=== PATIENT | male | born 1970 | race Hispanic/Latino ===

== ENCOUNTER 2021-11-19 21:40 | Emergency (ER) | payer OTHER, SELFPAY ==
--- OUTSIDE RECORDS SUMMARY | 2021-11-19 21:42 | XMS REPORT | Continuity of Care Document ---
:1970 Author Organization [facility] t Address [address] [place] [address] Care Team Providers Name Role Phone Unavailable Unavailable Unavailable Problems Condition Condition Condition Status Onset Resolution Last Treating Co mments Source Name Details Category Date Date Treatment Clinician Date Need for Need for Diagnosis Active Com mon pneumococc pneumococc Sp leobardo al al - [facility] vaccinatio vaccinatio [facility] Erectile Erectile Diagnosis Active Com mon dysfunctio dysfunctio Sp leobardo n, n, - [facility] unspecifie unspecifie [facility] d erectile d erectile Beti kes dysfunctio dysfunctio Me dical n type n type Center Encounter Encounter Diagnosis Active C ommon for for Spirit preventati preventati - [facility] ve adult ve adult [facility] care exam care exam [facility] with with Center abnormal abnormal findings findings Tobacco Tobacco Diagnosis Active Commo n use use Spirit disorder disorder - [facility] Decreased Decreased Diagnosis Active C ommon libido libido [facility] Elevated Elevated Diagnosis Active Com mon BP without BP without Sp leobardo diagnosis diagnosis - [facility] I of of hypertensi hypertensi [facility] Allergies, Adverse Reactions, Alerts This patient has no known allergies or adverse reactions. Medications This patient has no known medications. Immunizations Ordered Immunization Filled Immunization Date Status Commen ts Source Name Name Pneumovax Pneumovax 2017-06-15 Completed [facility] 00:00:00 [facility] Procedures This patient has no known procedures. Encounters Start End Encounter Admission Attending Care Care Encounter Source Date/Time Date/Time Type Type Clinicians Facility Department ID 2017-06-15 2017-06-15 [id number] Common 13:15:00 13:15:00 [facility] Results This patient has no known results.
--- NOTE | 2021-11-19 22:37 | ER ---
Nurse's Notes [facility] Name: Bret Snow Age: 50 yrs Sex: Male : 1970 Arrival Date: 11/19/2021 Time: 21:43 Bed 12 Private MD: Diagnosis: Impulsiveness-UPSET, RESOLVED Presentation: 11/19 21:54 Chief complaint: Patient states: I got in an argument with my and I just got kd3 really frustrated and i told her that if she didn't let me come home that i would hurt myself. I regretted it the moment I said it. My son called the box office attendant and they escorted me here. I have absolutely no intentions of hurting myself or others. Coronavirus screen: Vaccine status: Patient reports receiving the 2nd dose of the covid vaccine. Ebola Screen: No symptoms or risks identified at this time. Initial Sepsis Screen: Does the patient meet any 2 criteria? No. Patient's initial sepsis screen is negative. Does the patient have a suspected source of infection? No. Patient's initial sepsis screen is negative. Risk Assessment: Do you want to hurt yourself or someone else? Patient reports no desire to harm self or others. Onset of symptoms was November 19, 2021. 21:54 Method Of Arrival: Ambulatory kd3 21:54 Acuity: BUSTER 5 kd3 Triage Assessment: 21:57 General: Appears in no apparent distress. Behavior is calm, cooperative. Pain: Denies kd3 pain. Historical: - Allergies: 21:57 No Known Allergies; kd3 - Home Meds: 21:57 blood pressure pills [Active]; kd3 - PMHx: 21:57 Diabetes mellitus; Hypertensive disorder; kd3 - Immunization history:: Adult Immunizations up to date. - Social history:: Smoking status: unknown. - Family history:: not pertinent. Screenin:58 Abuse screen: Denies threats or abuse. Denies injuries from another. Nutritional kd3 screening: No deficits noted. Tuberculosis screening: No symptoms or risk factors identified. Fall Risk None identified. Assessment: 22:30 General: Appears in no apparent distress. Behavior is calm, cooperative. Neuro: Level hb of Consciousness is awake, alert, obeys commands, Oriented to person, place, time, situation. Cardiovascular: Patient's skin is warm and dry. Respiratory: Respiratory effort is even, unlabored, Respiratory pattern is regular, symmetrical. GI: No signs and/or symptoms were reported involving the gastrointestinal system. : No signs and/or symptoms were reported regarding the genitourinary system. EENT: No signs and/or symptoms were reported regarding the EENT system. Derm: Skin is pink, warm \T\ dry. Musculoskeletal: No signs and/or symptoms reported regarding the musculoskeletal system. 23:30 Pain: Denies pain. hb Vital Signs: 21:54 Weight 83.91 kg; Height 5 ft. 6 in. (167.64 cm); kd3 21:59 BP 155 / 99; Pulse 88; Resp 19; Temp 98.5(O); Pulse Ox 98% on R/A; kd3 21:54 Body Mass Index 29.86 (83.91 kg, 167.64 cm) kd3 Henry Coma Score: 22:32 Eye Response: spontaneous(4). Verbal Response: oriented(5). Motor Response: obeys david commands(6). Total: 15. Trauma Score (Adult): 22:32 Eye Response: spontaneous(1); Verbal Response: oriented(1); Motor Response: obeys david commands(2); Systolic BP: > 89 mm Hg(4); Respiratory Rate: 10 to 29 per min(4); Henry Score: 15; Trauma Score: 12 ED Course: 21:43 Patient arrived in ED. bp1 21:57 Triage completed. kd3 21:57 Arm band placed on right wrist. kd3 21:58 Patient has correct armband on for positive identification. kd3 21:58 No provider procedures requiring assistance completed. kd3 22:03 Brea Mcfarland, TRISHA is Primary Nurse. hb 22:05 Vaibhav Avitia MD is Attending Physician. david 22:35 Mason Rodríguez MD is Referral Physician. david 22:45 Patient did not have IV access during this emergency room visit. hb Administered Medications: No medications were administered Medication: 22:30 VIS not applicable for this client. hb Outcome: 22:36 Discharge ordered by . david 22:45 Discharged to home ambulatory. hb 22:45 Condition: stable 22:45 Discharge instructions given to patient, Instructed on discharge instructions, follow up and referral plans. Demonstrated understanding of instructions, follow-up care. 22:49 Patient left the ED. hb Signatures: Vaibhav Avitia MD MD cha Baxter, Heather, RN RN Samantha Rothman Kyli RN RN kd3
--- NOTE | 2021-11-19 22:38 | EDPHYS ---
Physician Documentation [facility] Name: Bret Snow Age: 50 yrs Sex: Male : 1970 Arrival Date: 11/19/2021 Time: 21:43 Bed 12 Private MD: ED Physician Vaibhav Avitia HPI: 11/19 22:34 This 50 yrs old Male presents to ER via Ambulatory with complaints of Mental david Evaluation. 22:30 GOT UPSET, SAID SOME THINGS HE DIDN'T MEAN , WAS ARGUING WITH HIS . Onset: The david symptoms/episode began/occurred just prior to arrival. Severity of symptoms: At their worst the symptoms were mild moderate in the emergency department the symptoms have improved markedly. 22:34 The patient has not experienced similar symptoms in the past. david Historical: - Allergies: 21:57 No Known Allergies; kd3 - Home Meds: 21:57 blood pressure pills [Active]; kd3 - PMHx: 21:57 Diabetes mellitus; Hypertensive disorder; kd3 - Immunization history:: Adult Immunizations up to date. - Social history:: Smoking status: unknown. - Family history:: not pertinent. ROS: 22:32 Constitutional: Negative for fever, chills, and weight loss, Eyes: Negative for injury, david pain, redness, and discharge, ENT: Negative for injury, pain, and discharge, Neck: Negative for injury, pain, and swelling, Cardiovascular: Negative for chest pain, palpitations, and edema, Respiratory: Negative for shortness of breath, cough, wheezing, and pleuritic chest pain, Abdomen/GI: Negative for abdominal pain, nausea, vomiting, diarrhea, and constipation, Back: Negative for injury and pain, : Negative for injury, bleeding, discharge, and swelling, MS/Extremity: Negative for injury and deformity, Skin: Negative for injury, rash, and discoloration, Neuro: Negative for headache, weakness, numbness, tingling, and seizure, Allergy/Immunology: Negative for hives, rash, and allergies, Endocrine: Negative for neck swelling, polydipsia, polyuria, polyphagia, and marked weight changes, Hematologic/Lymphatic: Negative for swollen nodes, abnormal bleeding, and unusual bruising. 22:32 Psych: Positive for POOR IMPULSE CONTROL, GOT UPSET. Exam: 22:32 Constitutional: This is a well developed, well nourished patient who is awake, alert, david and in no acute distress. Head/Face: Normocephalic, atraumatic. Eyes: Pupils equal round and reactive to light, extra-ocular motions intact. Lids and lashes normal. Conjunctiva and sclera are non-icteric and not injected. Cornea within normal limits. Periorbital areas with no swelling, redness, or edema. ENT: Nares patent. No nasal discharge, no septal abnormalities noted. Tympanic membranes are normal and external auditory canals are clear. Oropharynx with no redness, swelling, or masses, exudates, or evidence of obstruction, uvula midline. Mucous membranes moist. Neck: Trachea midline, no thyromegaly or masses palpated, and no cervical lymphadenopathy. Supple, full range of motion without nuchal rigidity, or vertebral point tenderness. No Meningismus. Chest/axilla: Normal chest wall appearance and motion. Nontender with no deformity. No lesions are appreciated. Cardiovascular: Regular rate and rhythm with a normal S1 and S2. No gallops, murmurs, or rubs. Normal PMI, no JVD. No pulse deficits. Respiratory: Lungs have equal breath sounds bilaterally, clear to auscultation and percussion. No rales, rhonchi or wheezes noted. No increased work of breathing, no retractions or nasal flaring. Abdomen/GI: Soft, non-tender, with normal bowel sounds. No distension or tympany. No guarding or rebound. No evidence of tenderness throughout. Back: No spinal tenderness. No costovertebral tenderness. Full range of motion. Male : Normal genitalia with no discharge or lesions. Skin: Warm, dry with normal turgor. Normal color with no rashes, no lesions, and no evidence of cellulitis. MS/ Extremity: Pulses equal, no cyanosis. Neurovascular intact. Full, normal range of motion. Neuro: Awake and alert, GCS 15, oriented to person, place, time, and situation. Cranial nerves II-XII grossly intact. Motor strength 5/5 in all extremities. Sensory grossly intact. Cerebellar exam normal. Normal gait. Psych: Awake, alert, with orientation to person, place and time. Behavior, mood, and affect are within normal limits. 22:32 Psych: Behavior/mood is pleasant, cooperative, Affect is calm, Oriented to person, place, time, Patient has no thoughts/intents to harm self or others. Judgement / Insight is normal. Memory is normal. Delusions/hallucinations are not present. Vital Signs: 21:54 Weight 83.91 kg; Height 5 ft. 6 in. (167.64 cm); kd3 21:59 BP 155 / 99; Pulse 88; Resp 19; Temp 98.5(O); Pulse Ox 98% on R/A; kd3 21:54 Body Mass Index 29.86 (83.91 kg, 167.64 cm) kd3 [place] Coma Score: 22:32 Eye Response: spontaneous(4). Verbal Response: oriented(5). Motor Response: obeys david commands(6). Total: 15. Trauma Score (Adult): 22:32 Eye Response: spontaneous(1); Verbal Response: oriented(1); Motor Response: obeys david commands(2); Systolic BP: > 89 mm Hg(4); Respiratory Rate: 10 to 29 per min(4); Jana Score: 15; Trauma Score: 12 MDM: 22:05 Patient medically screened. david 22:34 Data reviewed: vital signs, nurses notes, EMS record. Data interpreted: Cardiac david monitor: rate is 88 beats/min, rhythm is regular, Pulse oximetry: on room air is 98 %. Counseling: I had a detailed discussion with the patient and/or guardian regarding: the historical points, exam findings, and any diagnostic results supporting the discharge/admit diagnosis, the need for outpatient follow up, for definitive care, a family practitioner, a psychiatrist. Administered Medications: No medications were administered Disposition Summary: 11/19/21 22:36 Discharge Ordered Location: Home david Problem: new david Symptoms: have improved david Condition: Stable david Diagnosis - Impulsiveness - UPSET, RESOLVED david Followup: david - With: Private Physician - When: 2 - 3 days - Reason: Recheck today's complaints, Continuance of care, Re-evaluation by your physician Followup: david - With: Mason Rodríguez MD - When: 2 - 3 days - Reason: Recheck today's complaints, Re-evaluation by your physician Discharge Instructions: - Discharge Summary Sheet david - Impulse Control Disorders david Forms: - Medication Reconciliation Form david - Thank You Letter david - Antibiotic Education david - Prescription Opioid Use david Signatures: Vaibhav Avitia MD MD cha Doucette, Kyli, RN RN kd3
[2021-11-20 00:57] VITALS: BP 155/99; TEMP 98.5; O2SAT 98
== END 2021-11-19 22:49 | disposition home or self-care (01) ==
LOC: ER 21:40
DX: R45.87 Impulsiveness (principal); I10 Essential (primary) hypertension

== ENCOUNTER 2024-05-04 06:46 | Emergency (ER) | payer SELFPAY ==
--- OUTSIDE RECORDS SUMMARY | 2024-05-04 06:49 | XMS REPORT | Continuity of Care Document ---
Author Name Unknown Address [address] [place] [id number] [facility] thconnect Address [address] [place] [address] Care Team Providers Care Ruling Machine Feeder Name Role Phone Unavailable Unavailable Unavailable Problems Condition Name Condition Details Condition Category Status Onset Date Resolution Date Last Treatment Date Treating Clinician Comments Source Decreased libido Decreased libido Diagnosis Active [facility] Elevated BP without diagnosis of hypertensi on Elevated BP without diagnosis of hypertensi on Diagnosis Active [facility] Need for pneumococc al vaccinatio n Need for pneumococc al vaccinatio n Diagnosis Active [facility] Erectile dysfunctio n, unspecifie d erectile dysfunctio n type Erectile dysfunctio n, unspecifie d erectile dysfunctio n type Diagnosis Active [facility] Encounter for preventati ve adult health care exam with abnormal findings Encounter for preventati ve adult health care exam with abnormal findings Diagnosis Active [facility] Tobacco use disorder Tobacco use disorder Diagnosis Active [facility] Encounters Start Date/Time End Date/Time Encounter Type Admission Type Attending Clinicians Care Facility Care Department Encounter ID Source 2023-03-19 13:14:37 2023-03-19 13:14:37 Outpatient [facility] [id number] 2023-02-12 17:15:24 2023-02-12 17:15:24 Outpatient [facility] [id number] 2017-06-15 13:15:00 2017-06-15 13:15:00 [facility]patient [facility] [id number] [facility] Results Test Description Test Time Test Comments Results Result Co mments Source HEPATITIS PANEL, [id number] 06:38:54* Test Item Value Reference Range Interpretation Comme nts HEPATITIS A IgM (test code = 05223) NON-REACTIVE NON-REACTIVE HEPATITIS B CORE IgM (test code = 4644) NON-REACTIVE NON-REACTIVE HEPATITIS B SURF AG (test code = 2739) NON-REACTIVE NON-REACTIVE HEPATITIS C ANTIBODY (test code = 4675) NON-REACTIVE NON-REACTIVE INTERPRETATION HEPATITIS A: (test code = 2552) (NOTE) Hepatitis A serology shows no evidence of acute hepatitis A. INTERPRETATION HEPATITIS B: (test code = 52039) (NOTE) Hepatitis B serology shows no evidence of acute hepatitis B andno indication of exposure to hepatitis B virus in the previous kelsey eight months. INTERPRETATION HEPATITIS C: (test code = 50026) (NOTE) Hepatitis C serology shows no evidence of exposure to hepatitisC virus at this time. It can take up to 12 months after exposure tothe hepatitis C virus for antibodies to become detectable in the blood in certain patients. PSA, [id number] 05:32:26* Test Item Value Reference Range Interpretation Comme [facility] PSA, TOTAL (test code = 2606) 1.53 NG/ML <=4.00 NOTE: Methodolog y is Gisela Elliott Electrochemiluminescence Immunoassay traceable to WHO reference standard 96/760. UNLESS OTHERWISE INDICATED, ALL TESTING PERFORMED AT [facility] [address] [place] [address] DIRECTOR LIFE: ALEXANDRA SHARP M.D. CLIA NUMBER [id number] [place] [id number] COMPREHENSIVE METABOLIC [id number] 05:31:39* Test Item Value Reference Range Interpretation Comme nts GLUCOSE (test code = 2217) 220 MG/DL 70-99 H BUN (test code = 2208) 11 MG/DL 6-20 CREATININE (test code = 2214) 0.86 MG/DL 0.80-1.40 eGFR (2020 CKD-EPI) (test code = 78081) 105 ML/MIN/1.73 >60 CALC BUN/CREAT (test code = 2235) 13 RATIO 6-28 SODIUM (test code = 223) 142 MEQ/L 133-146 POTASSIUM (test code = 2228) 4.4 MEQ/L 3.5-5.4 CHLORIDE (test code = 5) 102 MEQ/L 95-107 CARBON DIOXIDE (test code = 2205) 30 MEQ/L 19-31 CALCIUM (test code = 2208) 9.9 MG/DL 8.5-10.5 PROTEIN, TOTAL (test code = 2228) 7.6 G/DL 6.1-8.3 ALBUMIN (test code = 2200) 4.8 G/DL 3.5-5.2 CALC GLOBULIN (test code = 0) 2.8 G/DL 1.9-3.7 CALC A/G RATIO (test code = 2233) 1.7 RATIO 1.0-2.6 BILIRUBIN, TOTAL (test code = 2206) 0.5 MG/DL <=1.2 ALKALINE PHOSPHATASE (test code = 2203) 78 U/L 40-121 AST (test code = 2217) 23 U/L 9-50 ALT (test code = 2218) 46 U/L 5-50 LIPID [id number] 05:31:39* Test Item Value Reference Range Interpretation Comme nts CHOLESTEROL (test code = 0) 194 MG/DL <200 TRIGLYCERIDES (test code = 2) 162 MG/DL <150 H HDL CHOLESTEROL (test code = 2219) 44 MG/DL >39 CALC LDL CHOL (test code = 2236) 122 MG/DL <100 H NOTE: CALCULATED LDL IS BASED ON ABBIE-YEE METHOD WHICHINCLUDES ADJUSTABLE TRIGLYCERIDE:VLDL CHOLESTEROL RATIO.THIS FACTOR VARIES BY MEASURED TRIGLYCERIDE AND NON-HDLCHOLESTEROL CONCENTRATIONS WITH INCREASED CALCULATED LDL SEENIN HIGHER TRIGLYCERIDE OR LOWER NON-HDL SPECIMENS. FOR MOREINFORMATION, SEE CLIENT ANNOUNCEMENT AT [email or web address] [email or web address] RATIO LDL/HDL (test code = 2238) 2.77 RATIO <3.55 HEMOGLOBIN [id number] 03:18:28* Test Item Value Reference Range Interpretation Comme nts HEMOGLOBIN A1c (test code = 25522) 8.1 % 4.2-5.6 H [employer] GUIDELINES FOR HGB A1C: PREDIABETES/INCREASED RISK . . . . . . . 5.7-6.4% DIAGNOSIS OF DIABETES . . . . . . . . . >=6.5% WITH CONFIRMATION OR APPROPRIATE SYMPTOMS NOTE: ASSAY MAY BE AFFECTED BY HEMOGLOBINOPATHIES (SICKLE CELL ANEMIA, S-C DISEASE, OTHERS) OR ARTIFICIALLY LOWERED BY DECREASED RED CELL SURVIVAL (HEMOLYTIC ANEMIAS, BLOOD LOSS, ETC.). CONSIDER ALTERNATE TESTING OR LABORATORY CONSULTATION. CBC W/AUTO DIFF WITH [id number] 02:34:47* Test Item Value Reference Range Interpretation Comme nts WBC (test code = 1001) 8.9 K/UL 3.5-11.0 RBC (test code = 1002) 5.63 M/UL 4.50-6.10 HEMOGLOBIN (test code = 1003) 17.1 G/DL 13.5-17.0 H HEMATOCRIT (test code = 1004) 50.0 % 40.0-51.0 MCV (test code = 1005) 88.8 fL 80.0-99.0 MCH (test code = 1006) 30.4 PG 25.0-33.0 MCHC (test code = 1007) 34.2 G/DL 31.0-36.0 RDW (test code = 1038) 12.7 % 11.5-15.0 NEUTROPHILS (test code = 1008) 55.5 % LYMPHOCYTES (test code = 1010) 31.3 % MONOCYTES (test code = 1011) 6.2 % EOSINOPHILS (test code = 1012) 5.4 % BASOPHILS (test code = 1013) 1.3 % IMMATURE GRANULOCYTES (test code = 1036) 0.3 % NUCLEATED RBCS (test code = 1065) 0.0 /100 WBC'S See_Comment [Automated [employer] ge] The system which generated this result transmitted reference range: 0.0. The reference range was not used to interpret this result as normal/abnormal. PLATELET COUNT (test code = 1015) 242 K/UL 130-400 ABSOLUTE NEUTROPHILS (test code = 1066) 4.93 K/UL 1.50-7.50 ABSOLUTE LYMPHOCYTES (test code = 1067) 2.79 K/UL 1.00-4.00 ABSOLUTE MONOCYTES (test code = 1068) 0.55 K/UL 0.20-1.00 ABSOLUTE EOSINOPHILS (test code = 1040) 0.48 K/UL 0.00-0.50 ABSOLUTE BASOPHILS (test code = 1069) 0.12 K/UL 0.00-0.20 ABS IMMATURE GRANULOCYTES (test code = 1020) 0.03 K/UL 0.00-0.10 ABS NUCLEATED RBCS (test code = 61738) 0.00 K/UL 0.00-0.11
--- NOTE | 2024-05-04 07:14 | EDPHYS ---
Physician Documentation [facility] Name: Bret Snow Age: 53 yrs Sex: Male : 1970 Arrival Date: 05/04/2024 Time: 06:46 Bed 12 Private MD: ED Physician Arron Duarte HPI: 05/04 07:15 This 53 yrs old Male presents to ER via Ambulatory with complaints of Insect ec2 Bite, Other, Pain. 07:15 Patient arrives today for evaluation of induration to the scalp. Patient reports that ec2 he has been having pain to the area, is having induration and reported swelling.. Historical: - Allergies: 07:00 No Known Allergies; iw - Home Meds: 07:03 None [Active]; iw - PMHx: 07:00 diabetes mellitus; Hypertensive disorder; iw - PSHx: 07:03 Cholecystectomy; iw - Immunization history:: Adult Immunizations. - Infectious Disease History:: Denies. - Social history:: Smoking status: Patient reports the use of cigarette tobacco products, denies chronic smoking, but will smoke occasionally. ROS: 07:15 Constitutional: as per hpi ec2 Exam: 07:15 Constitutional: GEN: NAD Head: atraumatic Eyes: EOMI Ears: External ears are ec2 normal. CV: regular rate LUNGS: no respiratory distress ABD: non-distended SKIN: Occipital scalp with punctate lesion with skin irritation appreciated, no fluctuance, no significant erythema or swelling appreciated. MSK: no evidence of trauma Vital Signs: 07:01 BP 144 / 109; Pulse 85; Resp 16; Temp 97.4; Pulse Ox 98% on R/A; Weight 81.65 kg; iw Height 5 ft. 5 in. ; Pain 5/10; 07:01 Body Mass Index 29.95 (81.65 kg, 165.1 cm) iw 07:01 Pain Scale: Adult iw MDM: 07:07 Medical Screening Exam initiated ec2 07:15 Data reviewed: vital signs, nurses notes. ED course: Patient arrives today for ec2 evaluation of scalp concerns. Examination yields skin findings as above. Will treat for cellulitis.. Administered Medications: 07:20 Drug: Trimethoprim-Sulfamethoxazole PO (160 mg-800 mg (DS) 1 tablet PO once Route: PO; iw 07:37 Follow up: Response: No adverse reaction iw 07:20 Drug: Ketorolac IM 15 mg IM once Route: IM; Site: left deltoid; iw 07:37 Follow up: Response: No adverse reaction iw Disposition Summary: 05/04/24 07:13 Discharge Ordered Notes: Location: Home ec2 Condition: Stable ec2 Diagnosis - Cellulitis of head ec2 Followup: ec2 - With: Private Physician - When: - Reason: Re-evaluation by your physician Discharge Instructions: - Discharge Summary Sheet ec2 - Cellulitis, Adult, Iorp-xz-[id number] ec2 Forms: - Medication Reconciliation Form ec2 - Antibiotic Education ec2 - Prescription Opioid Use ec2 - Patient Portal Instructions ec2 - Leadership Thank You Letter ec2 Prescriptions: - Bactrim DS 800-160 mg Oral Tablet - take 1 tablet ORAL route every 12 hours for 7 days; 14 tablet; Refills: 0, ec2 Product Selection Permitted Signatures: Sue Galo RN RN iw Arron Duarte MD MD ec2
--- NOTE | 2024-05-04 07:14 | ER ---
Nurse's Notes [facility] Name: Bret Snow Age: 53 yrs Sex: Male : 1970 Arrival Date: 05/04/2024 Time: 06:46 Bed 12 Private MD: Diagnosis: Cellulitis of head Presentation: 05/04 07:00 Coronavirus screen: At this time, the client does not indicate any symptoms associated iw with coronavirus-19. Ebola Screen: No symptoms or risks identified at this time. Initial Sepsis Screen: Does the patient meet any 2 criteria? No. Patient's initial sepsis screen is negative. Does the patient have a suspected source of infection? No. Patient's initial sepsis screen is negative. 07:00 Method Of Arrival: Ambulatory iw 07:00 Chief complaint: Patient states: had a spot on top of his head about a month ago , iw thought he got bit by something, he popped it and has been cleaning it but now it feels like there is s knot with fluid inside. Risk Assessment: Do you want to hurt yourself or someone else? Patient reports no desire to harm self or others. Onset of symptoms was March 2024. 07:00 Acuity: BUSTER 4 iw Historical: - Allergies: 07:00 No Known Allergies; iw - Home Meds: 07:03 None [Active]; iw - PMHx: 07:00 diabetes mellitus; Hypertensive disorder; iw - PSHx: 07:03 Cholecystectomy; iw - Immunization history:: Adult Immunizations. - Infectious Disease History:: Denies. - Social history:: Smoking status: Patient reports the use of cigarette tobacco products, denies chronic smoking, but will smoke occasionally. Screenin:12 [facility] ED Fall Risk Assessment (Adult) History of falling in the last 3 months, iw including since admission No falls in past 3 months (0 pts) Confusion or Disorientation No (0 pts) Intoxicated or Sedated No (0 pts) Impaired Gait No (0 pts) Mobility Assist Device Used No (0 pt) Altered Elimination No (0 pt) Score/Fall Risk Level 0 - 2 = Low Risk Oriented to surroundings, Maintained a safe environment. Abuse screen: Denies threats or abuse. Nutritional screening: No deficits noted. Tuberculosis screening: No symptoms or risk factors identified. Assessment: 07:11 General: Appears in no apparent distress. Behavior is calm, cooperative. Pain: Pain: iw Complains of pain in back of head. Neuro: Level of Consciousness is awake, alert, obeys commands, Oriented to person, place, time, situation, Moves all extremities. Full function. Cardiovascular: Patient's skin is warm and dry. Respiratory: Respiratory effort is even, unlabored, Respiratory pattern is regular, symmetrical. Derm: Skin is intact, is healthy with good turgor, Skin is pink, warm \T\ dry. normal. Musculoskeletal: Range of motion: intact in all extremities. Vital Signs: 07:01 BP 144 / 109; Pulse 85; Resp 16; Temp 97.4; Pulse Ox 98% on R/A; Weight 81.65 kg; iw Height 5 ft. 5 in. ; Pain 5/10; 07:01 Body Mass Index 29.95 (81.65 kg, 165.1 cm) iw 07:01 Pain Scale: Adult iw ED Course: 06:49 Patient arrived in ED. gm2 07:02 Triage completed. iw 07:02 Arm band placed on. iw 07:04 Arron Duarte MD is Attending Physician. ec2 07:11 Sue Galo RN is Primary Nurse. iw 07:12 Patient has correct armband on for positive identification. Provided Education on: . iw 07:13 No provider procedures requiring assistance completed. Patient did not have IV access iw during this emergency room visit. Administered Medications: 07:20 Drug: Trimethoprim-Sulfamethoxazole PO (160 mg-800 mg (DS) 1 tablet PO once Route: PO; iw 07:37 Follow up: Response: No adverse reaction iw 07:20 Drug: Ketorolac IM 15 mg IM once Route: IM; Site: left deltoid; iw 07:37 Follow up: Response: No adverse reaction iw Medication: 07:12 VIS not applicable for this client. iw Outcome: 07:13 Discharge ordered by . ec2 07:37 Discharged to home ambulatory, iw 07:37 Condition: good 07:37 Discharge instructions given to patient, Instructed on discharge instructions, follow up and referral plans. medication usage, Demonstrated understanding of instructions, follow-up care, medications, Prescriptions given X 1, 07:38 Patient left the ED. iw Signatures: Sue Galo RN RN iw Arron Duarte MD MD 2 Sangeetha Saxena 2 Corrections: (The following items were deleted from the chart) 07:02 07:00 Method Of Arrival: Ambulatory iw iw 07:04 07:01 BP 144 / 109; Pulse 85bpm; Resp 16bpm; Pulse Ox 98% RA; Temp 97.4F; iw iw
[2024-05-04] MEDS ORDERED: SMZ./TMP. 800/160 MG TABLET ONE (07:16)
[2024-05-04] MEDS ORDERED: KETOROLAC 30 MG/ML INJ ONE (07:16)
[2024-05-04 07:44] VITALS: BP 144/109; TEMP 97.4; O2SAT 98
== END 2024-05-04 07:38 | disposition home or self-care (01) ==
LOC: ER 06:46
DX: L03.811 Cellulitis of head [any part, except face] (principal)